=== PATIENT | male | born 1995 | race Hispanic/Latino ===

== ENCOUNTER 2019-04-04 13:16 | Emergency (ER) | payer OTHER ==
[~2019-04-04] VITALS: Ht 172.7 cm; Wt 108.9 kg
--- OUTSIDE RECORDS SUMMARY | 2019-04-04 13:23 | XMS REPORT | Continuity of Care Document ---
Author Author Eniram Address Unknown Phone Unavailable Care Team Providers Care House Builder Name Role Phone Joinity Unavailable Unavailable Problems Problem Status Onset Date Classification Date Reported Comments Source Body mass index 30+ - obesity 07/22/2018 Diagnosis 07/22/2018 [facility] Dysfunction of eustachian tube 07/22/2018 Diagnosis 07/22/2018 [facility] Medications Medication Details Route Status Patient Instructions Ordering Provider Order Date Source 24 HR Glipizide 5 MG Extended Release Oral Tablet glipizide ER 5 mg tablet, extended release 24 hr Active [facility] Medrol (Zak) 4 mg tablets in a dose pack Medrol (Zak) 4 mg tablets in a dose pack UAD Active [facility] Allergies, Adverse Reactions, Alerts Substance Category Reaction Severity Reaction type Status Date Reported Comments Source Amoxicillin Allergy to substance 07/22/2018 [facility] Immunizations No Data Provided for This Section Results No Data Provided for This Section Pathology Reports No Data Provided for This Section Diagnostic Reports No Data Provided for This Section Consultation Notes No Data Provided for This Section Discharge Summaries No Data Provided for This Section History and Physicals No Data Provided for This Section Vital Signs Vital Sign Value Date Comments Source Diastolic (mm Hg) 70 07/21/2018 [facility] Height 69 07/21/2018 [facility] Systolic (mm Hg) 115 07/21/2018 [facility] Weight 250 07/21/2018 [facility] Encounters Location Location Details Encounter Type Encounter Number Reason For Visit Attending Provider ADM Date DC Date Status Source [place] - [facility] - [facility] RONIT CumminsC: [address] [place] [address], Ph. [id number] Evette Menendez 07/21/2018 [facility] Procedures No Data Provided for This Section Assessment and Plan No Data Provided for This Section Plan of Care No Data Provided for This Section Social History Social History Date Source Smoking Status Never Smoker 07/22/2018 [facility] Family History No Data Provided for This Section Advance Directives No Data Provided for This Section Functional Status No Data Provided for This Section
--- OUTSIDE RECORDS SUMMARY | 2019-04-04 13:23 | XMS REPORT | Encounter Summary ---
Author Organization Unknown Address [address] [place] [id number] Phone [phone] Reason for Visit Medical Complaint Instructions 1. Dysfunction of eustachian tube eustachian tube problems: care instructions Medrol (Zak) 4 mg tablets in a dose pack 2. Body mass index 30+ - obesity body mass index: care instructions Discussion Note: None recorded. Plan of Care Patient Instructions Apply warm compresses to the affected ear and take ibuprofen for pain and swelling. Add an antihistamine (claritin, zyrtec or darius) to help with the nasal drainage/post nasal drip. Please seek care (PCP, Urgent Care, ER) [facility] symptoms get worse or do not resolve in 1 week. Reminders Provider Appointments None recorded. Lab None recorded. Referral None recorded. Procedures None recorded. Surgeries None recorded. Imaging None recorded. Medications Name Start Date glipizide ER 5 mg tablet, extended release 24 hr Medrol (Zak) 4 mg tablets in a dose pack UAD Medications Administered None recorded. Vitals Height Weight BMI Blood Pressure 5 ft 9 in 250 lbs 36.9 kg/m2 115/70 mm[Hg] Lab Results None recorded. Allergies Code Code System Name Reaction Severity Status Onset 723 RxNorm Amoxicillin Active Problems None recorded. Procedures None recorded. Vaccine List None recorded. Social History Smoking Status Never Smoker Past Encounters 07/21/2018 Dysfunction of Eustachian Tube; Body Mass Index 30+ - Obesity RONIT CumminsC: [address] [place] [address], Ph. History of Present Illness Ear Complaint Reported By: Patient HPI: Location: right. Quality: ears feel full/plugged. Severity: progressively worse. Onset/Timing: worse. Context: no sick contacts, no recent swimming/water in ear, no exposure to second hand smoke, no head trauma, not grinding teeth, no recent air travel. Associated Symptoms: no discharge from the ears, no nose/sinus problems, no ringing in the ears, no fever, no chills, no dizziness, no vertigo, no headache, no muscle aches, popping noise in the ears, earache Review of Systems Basic Reported By: Patient Constitutional: Constitutional: no fever Eyes: Eyes: no eye complaints Nenm-Wazb-Wwttd-Throat: Ears: ear pain. Nose: no nose/sinus problems. Mouth/Throat: no sore throat, no bleeding gums, no mouth complaints, no teeth problems Cardiovascular: Cardiovascular: no chest pain, no shortness of breath, no known heart murmur Respiratory: Respiratory: no cough, no wheezing, no shortness of breath Gastrointestinal: Gastrointestinal: no abdominal pain, no vomiting / diarrhea Genitourinary: Genitourinary: no urinary complaints, no discharge Musculoskeletal: Musculoskeletal: no muscle aches, no muscle weakness, no arthralgias/joint pain, no back pain Skin: Skin: no abnormal / changing mole, no jaundice, no rashes Neurologic: Neurologic: no loss of consciousness, no weakness, no numbness, no seizures, no dizziness, no headaches Physical Exam Adult Basic, Adult Male Complete Reported By: Patient Constitutional: General Appearance: healthy-appearing, well-nourished, well-developed. Level of Distress: NAD. Ambulation: ambulating normally Psychiatric: Mental Status: active and alert. Orientation: to time, to place, to person Eyes: Lids and Conjunctivae: non-injected, no discharge, no pallor Mbb-Gbav-Mosve-Throat: Ears: no lesions on external ear, no outer ear tenderness, EACs clear, TMs clear, TM immobile. Hearing: no hearing loss. Nose: no lesions on external nose, nares patent, no septal deviation, nasal passages clear, no sinus tenderness, no nasal discharge. Lips, Teeth, and Gums: no mouth or lip ulcers, no bleeding gums, normal dentition. Oropharynx: moist mucous membranes, no erythema, no exudates, tonsils not enlarged Neck: Lymph Nodes: no cervical LAD Lungs: Respiratory effort: no dyspnea, no tachypnea, no use of accessory muscles, no intercostal retractions. Percussion: no dullness, flatness, or hyperresonance. Auscultation: breath sounds normal, good air movement Cardiovascular: Heart Auscultation: RRR, no murmurs
--- OUTSIDE RECORDS SUMMARY | 2019-04-04 13:23 | XMS REPORT ---
Author Author [facility] Address Unknown Phone Unavailable Care Team Providers Care Plastic Boat Buffer Name Role Phone Unavailable Unavailable Payers Payer Name Policy Type Policy Number Effective Date Expiration Date Problems This patient has no known problems. Allergies, Adverse Reactions, Alerts Allergy Name Allergy Type Status Severity Reaction(s) Onset Date Inactive Date Treating Clinician Comments amoxicillin DA Active U 2013-10-25 00:00:00 Medications This patient has no known medications. Results Test Description Test Time Test Comments Text Results Atomic Results Result Comments - XR L-SPINE 2/3 VIEWS 2018-11-16 09:58:00 Name: MARIANA HERÁNNDEZ : 1995 Age/S:23 /M [address] [facility] Unit#:[id number] Loc: [place] [address] Phys: Marce Meek MD Dis Date: PHONE #: [phone] Status: REG ER FAX #: [phone] Exam Date: 11/16/2018 Reason: BACK PAIN EXAMS: CPT CODE: [id number] XR L-SPINE 2/3 VIEWS 61786 HISTORY: Back pain. COMPARISON: None available. 3 views of the T-spine: No acute fracture or dislocation. The vertebral body heights are maintained. Disc spaces are preserved. Minimal anterior marginal osteophytes. No paravertebral lesions. IMPRESSION: No acute fracture or dislocation. 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 DJD. 3 views of the lumbar spine: No acute fracture or dislocation. 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 Disc spaces are preserved. IMPRESSION: No acute fracture or dislocation. 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 at 0958 Reported and signed by: Roque Dela Cruz M.D. CC: Marce Meek MD Technologist: Johnna Sanchez Trnjasont Data: 11/16/2018 (0958) Maria [email or web address] Orig Print D/T: S: 11/16/2018 (1001) PAGE 1 Signed Report - XR T-SPINE 3 VIEWS 2018-11-16 09:58:00 [facility] 1995 Age/S:23 /M [address] [facility] Unit#:[id number] Loc: [place] [address] Phys: Marce Meek MD Dis Date: PHONE #: [phone] Status: REG ER FAX #: [phone] Exam Date: 11/16/2018 Reason: BACK PAIN EXAMS: CPT CODE: [id number] XR T-SPINE 3 VIEWS 31785 HISTORY: Back pain. COMPARISON: None available. 3 views of the T-spine: No acute fracture or dislocation. The vertebral body heights are maintained. Disc spaces are preserved. Minimal anterior marginal osteophytes. No paravertebral lesions. IMPRESSION: No acute fracture or dislocation. 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 DJD. 3 views of the lumbar spine: No acute fracture or dislocation. 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 Disc spaces are preserved. IMPRESSION: No acute fracture or dislocation. 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 at 0958 Reported and signed by: Roque Dela Cruz M.D. CC: Marce Meek MD Technologist: Johnna Sanchez Trnjasonrpt Data: 11/16/2018 (0958) [email or web address] Orig Print D/T: S: 11/16/2018 (1001) PAGE 1 Signed Report URINALYSIS COMPLETE 2018-11-12 11:33:00 UA COLOR (test code=COLU) YELLOW YELLOW UA APPEARANCE (test code=APPU) CLEAR CLEAR UA GLUCOSE DIPSTICK (test code=DGLUU) 1000 (3+) mg/dL NEGATIVE UA BILIRUBIN DIPSTICK (test code=BILU) NEGATIVE mg/dL NEGATIVE UA KETONE DIPSTICK (test code=KETU) 15 (1+) mg/dL NEGATIVE UA SPECIFIC GRAVITY (test code=SGU) 1.015 1.001-1.035 UA BLOOD DIPSTICK (test code=MAMI) neg Juan Francisco/uL NEGATIVE UA PH DIPSTICK (test code=TRINI) 6.5 5.0-8.0 UA PROTEIN DIPSTICK (test code=PROU) 100 (2+) mg/dL Neg-15 UA UROBILINIOGEN DIPSTICK (test code=URO) norm mg/dL 0.0-0.2 UA NITRITE DIPSTICK (test code=SARAI) NEGATIVE NEGATIVE UA LEUKOCYTE ESTERASE DIPSTICK (test code=LEUU) 25 Lashawn/uL (Trace) uL NEGATIVE UA WBC (test code=WBCU) 0-5 per HPF 0-5 IN SOME URINARY TRACT INFECTIONS THERE MAY NOT BE ENOUGHWBCs IN THE URINE TO TRIGGER AN AUTOMATIC (REFLEX) URINECULTURE. A SEPERATE ORDER FOR URINE CULTURE IS RECOMMENDEDIF THERE IS STRONG SUPPORT FOR A URINARY TRACT INFECTIONCLINICALLY. UA RBC (test code=RBCU) 0-2 per HPF 0-5 UA EPITHELIAL CELLS (test code=EPIU) Rare (0-1/hpf) per HPF Few UA BACTERIA (test code=BACU) TRACE per HPF NONE UA MUCUS (test code=MUCU) MANY per LPF NONE-FEW Urine Source? Clean CatchURINALYSIS [id number] 11:23:00* Test Item Value Reference Range Comments UA COLOR (test code=COLU) YELLOW YELLOW UA APPEARANCE (test code=APPU) CLEAR UA GLUCOSE DIPSTICK (test code=DGLUU) 1000 (3+) mg/dL NEGATIVE UA BILIRUBIN DIPSTICK (test code=BILU) NEGATIVE mg/dL NEGATIVE UA KETONE DIPSTICK (test code=KETU) 15 (1+) mg/dL NEGATIVE UA SPECIFIC GRAVITY (test code=SGU) 1.015 1.001-1.035 UA BLOOD DIPSTICK (test code=MAMI) neg Juan Francisco/uL NEGATIVE UA PH DIPSTICK (test code=TRINI) 6.5 5.0-8.0 UA PROTEIN DIPSTICK (test code=PROU) 100 (2+) mg/dL Neg-15 UA UROBILINIOGEN DIPSTICK (test code=URO) norm mg/dL 0.0-0.2 UA NITRITE DIPSTICK (test code=SARAI) NEGATIVE NEGATIVE UA LEUKOCYTE ESTERASE DIPSTICK (test code=LEUU) 25 Lashawn/uL (Trace) uL NEGATIVE UA WBC (test code=WBCU) per HPF 0-5 Urine Source? Clean Catch
[2019-04-04] MEDS: TETANUS/DIPHTHERIA TOX ADULT 0.5 ML SYR IM ONE (13:36)
--- NOTE | 2019-04-04 13:45 | NUR ---
[employer]
[2019-04-04] MEDS ORDERED: BACITRACIN ZINC 0.9GM TP ONE (13:50)
== END 2019-04-04 14:13 | disposition home or self-care (01) ==
LOC: ER 13:20
DX: S61.211A Laceration without foreign body of left index finger without damage to nail, initial encounter (principal); Z23 Encounter for immunization; W26.0XXA Contact with knife, initial encounter; Y92.009 Unspecified place in unspecified non-institutional (private) residence as the place of occurrence of the external cause
CPT/HCPCS: 90471; 90714; 99282